=== PATIENT | male | born 2000 | race African-American/Black ===

== ENCOUNTER 2020-09-29 21:49 | Emergency (ER) | payer OTHER, SELFPAY ==
[2020-09-29 22:33] VITALS: BP 136/80; PULSE 61; RESP 16; TEMP 36.8; O2SAT 99; BMI 32.8
--- NOTE | 2020-09-29 22:48 | PC.NURSE ---
PT BROUGHT ME A STOOL SAMPLE, INSTEAD OF URINE. SAMPLE PLACED ON CARD AND SENT TO LAB.
[2020-09-29 23:09] LABS: OBS Int Ctl Valid YES; OBS1 NEGATIVE (NEGATIVE)
[2020-09-29 23:42] LABS: Glucose Urine UA NEG (NEG); Leukocyte Esterase Urine NEG (NEG); Nitrite Urine NEG (NEG); Urine Blood NEG (NEG); Urine Ketones NEG (NEG); Urine Protein NEG (NEG-TRACE)
[2020-09-29 23:45] LABS: Appearance Urine CLEAR; Color Urine YELLOW
[2020-09-29 23:56] LABS: RBC Urine 0 /HPF (0); Squamous Epithelial Cell Urine TRACE /LPF; WBC Urine 0 /HPF (0-4)
--- NOTE | 2020-09-29 23:56 | PC.NURSE ---
PT ALSO COMPLAINING OF HEMATURIA 3 DAYS AGO, SAMPLE SENT.
--- NOTE | 2020-09-30 00:42 | ED.GENADULT ---
HPI - General Adult General Chief complaint: General Medical Stated complaint: Rectal Bleeding Time Seen by Provider: 09/30/20 00:41 Source: patient Mode of arrival: ambulatory Limitations: language barrier History of Present Illness HPI narrative: . No significant medical history notice bright red blood when he wiped no rectal pain denies any constipation denies any prior history of bleeding in the past stool was brown no abdominal pain Related Data Previous Rx's Medication Instructions Recorded hydrocortisone acetate [Anusol-HC] 25 mg RI BID #12 ea 09/30/20 Allergies Allergy/AdvReac Type Severity Reaction Status Date / Time No Known Allergies Allergy Verified 09/29/20 22:32 [No Known Allergies*] Review of Systems Review of Systems: Yes all other systems are reviewed and are negative [facility] Past Medical History Medical History Asthma Social History Social History Advance Directives: No Physical Exam Vital Signs: Vital Signs: Last Vital Signs Temp 98.3 F 09/29/20 22:33 Pulse 61 09/29/20 22:33 Resp 16 09/29/20 22:33 BP 136/80 09/29/20 22:33 Pulse Ox 99 09/29/20 22:33 Body Mass Index 32.8 Appearance: Alert. Oriented X3. No acute distress. Eyes: Pupils equal, round and reactive to light. ENT: Pharynx normal. Neck: Normal inspection. Neck supple. CVS: Normal heart rate and rhythm. Pulses normal. Respiratory: No respiratory distress. Breath sounds normal. Abdomen: Soft and nontender. Bowel sounds are present, no mass palpable, no CVA tenderness rectal guaiac negative small internal hemorrhoids palpable nonbleeding Skin: Skin warm and dry. Normal skin color. Normal skin turgor. Extremities: No lower extremity edema. Neuro: Oriented X 3. No motor deficit. No sensory deficit. Medical Decision Making MDM Narrative Medical decision making narrative: Patient has small internal hemorrhoid without any bleeding , likely the cause of bright red blood on tissue. Guaiac was negative. Patient advised to avoid constipation/straining and use Anusol suppositories Lab Data Lab results reviewed: Yes I reviewed the patient's lab results. Labs: Lab Results 09/29/20 09/29/20 Range/Units 22:50 23:20 Urine Color YELLOW Urine Appearance CLEAR Urine pH 6.0 (5.0-8.0) Ur Specific [place] 1.010 (1.005-1.025) Urine Protein NEG (NEG-TRACE) MG/DL Urine Glucose (UA) NEG (NEG) MG/DL Urine Ketones NEG (NEG) MG/DL Urine Blood NEG (NEG) Urine Nitrite NEG (NEG) Ur Leukocyte Esterase NEG (NEG) Urine RBC 0 (0) /HPF Urine WBC 0 (0-4) /HPF Ur Squamous Epith Cells TRACE /LPF Urine Bacteria NONE /LPF Stool Occult Blood NEGATIVE (NEGATIVE) Discharge Plan Discharge Clinical Impression: Hemorrhoids Patient Disposition: Home, Self-Care Instructions: Hemorrhoids (ED) Additional Instructions: Avoid constipation and straining. Use suppositories twice daily till heals completely. Evite el estre?imiento y el esfuerzo. Use supositorios dos veces al d?a hasta que sane por completo. Prescriptions: New hydrocortisone acetate [Anusol-HC] 25 mg suppository 25 mg RI BID Qty: 12 RF: 0 Print Language: Malaysian
--- NOTE | 2020-09-30 00:43 | PC.NURSE ---
at bedside for primary eval.
== END 2020-09-30 01:04 | disposition home or self-care (01) ==
LOC: HO.ED 09-30 00:52
PROVIDERS: Emergency Provider Internal Medicine
DX: K64.9 Unspecified hemorrhoids (principal); K62.5 Hemorrhage of anus and rectum
CPT/HCPCS: 81001; 82272; 99283